=== PATIENT | female | born 1990 | race Caucasian/White ===

== ENCOUNTER 2017-09-10 16:41 | Emergency (ER) | payer BC ==
[2017-09-10] MEDS ORDERED: Sodium Chloride 0.9% 10 ML Syringe FLUSH PRN (17:28)
[2017-09-10] MEDS ORDERED: Ondansetron 4 MG/2 ML SDV IVPUSH ONE (17:28)
[2017-09-10] MEDS ORDERED: Sodium Chloride 0.9% 1,000 ML IV SCH (17:30)
[2017-09-10] MEDS ORDERED: Ketorolac 30 MG/ML SDV IVPUSH ONE (17:30)
[2017-09-10] MEDS ORDERED: HYDROmorphone 1 MG/ML Syringe IVPUSH ONE (17:30)
--- NOTE | 2017-09-10 19:53 | EDM.PDOC ---
ED HPI GENERAL MEDICAL PROBLEM - General Chief Complaint: Genitourinary Problem Stated Complaint: POSS. KIDNEY STONE Time Seen by Provider: 09/10/17 17:10 Source of Information: Reports: Patient, Family History Limitations: Reports: No Limitations - History of Present Illness INITIAL COMMENTS - FREE TEXT/NARRATIVE: The patient presents with left flank pain and left lower abdominal pain. She says this all stared about 1 1/2 weeks ago. She had some hematuria at that time. The pain went away and today it came back more severe. She has some nausea but no vomiting. She has no dysuria. She has no fever, chills, chest pain, shortness of breath or diarrhea. She has a history of kidney stones. Onset: Sudden Duration: Week(s): (1 1/2 weeks ago) Location: Reports: Abdomen, Back (left flank) Quality: Reports: Sharp Severity: Severe Improves with: Reports: None Worsens with: Reports: None Associated Symptoms: Reports: Nausea/Vomiting. Denies: Chest Pain, Cough, Fever /Chills, Headaches, Shortness of Breath Treatments CERTIFIED PHARMACY TECH: Reports: Acetaminophen Other Treatments CERTIFIED PHARMACY TECH: 1630 Left Flank Pain Score (Numeric/FACES): 6 - Related Data Allergies Allergy/AdvReac Type Severity Reaction Status Date / Time No Known Allergies Allergy Verified 09/10/17 17:08 Home Meds: Home Meds Control. 09/10/17 [History] Tamsulosin HCl [Flomax] 0.4 mg PO DAILY #10 cap.er.24h 09/10/17 [Rx] oxyCODONE HCl/Acetaminophen [Percocet 5-325 mg Tablet] 1 - 2 each PO Q6HR PRN # 20 tablet 09/10/17 [Rx] Past Medical History Genitourinary History: Reports: Renal Calculus Social & Family History - Tobacco Use Smoking Status *Q: Never Smoker - Recreational Drug Use Recreational Drug Use: No ED ROS GENERAL - Review of Systems Review Of Systems: See Below Constitutional: Reports: No Symptoms HEENT: Reports: No Symptoms Respiratory: Reports: No Symptoms Cardiovascular: Reports: No Symptoms Endocrine: Reports: No Symptoms GI/Abdominal: Reports: Abdominal Pain, Nausea. Denies: Vomiting : Reports: Flank Pain (Left) Musculoskeletal: Reports: No Symptoms Skin: Reports: No Symptoms Neurological: Reports: No Symptoms ED EXAM, RENAL/ - Physical Exam Exam: See Below Exam Limited By: No Limitations General Appearance: Alert, No Apparent Distress Ears: Normal External Exam Nose: Normal Inspection Head: Atraumatic, Normocephalic Neck: Normal Inspection Respiratory/Chest: No Respiratory Distress, Lungs Clear, Normal Breath Sounds Cardiovascular: Regular Rate, Rhythm, No Edema, No Murmur GI/Abdominal: Soft, No Organomegaly, No Mass, Tender (Mild tenderness to the left lower abdomen) Back Exam: CVA Tenderness (L) Extremities: Normal Inspection Neurological: Alert, Oriented, No Motor/Sensory Deficits Course - Vital Signs Last Recorded V/S: Last Vital Signs Temp 97.3 F 09/10/17 17:08 Pulse 83 09/10/17 17:08 Resp BP 136/105 H 09/10/17 17:08 Pulse Ox 98 09/10/17 17:08 - Orders/Labs/Meds Orders: Active Orders 24 hr Category Date Time Status Peripheral IV Care [RC] . DIRECTED Care 09/10/17 17:29 Active Sodium Chloride 0.9% [Normal Saline] 1,000 ml Med 09/10/17 17:30 Active IV ASDIRECTED Sodium Chloride 0.9% [Saline Flush] Med 09/10/17 17:28 Active 10 ml FLUSH ASDIRECTED PRN ED Antiemetic Medication Reflex [OM.PC] Stat Oth 09/10/17 17:28 Ordered Peripheral IV Insertion Adult [OM.PC] Stat Oth 09/10/17 17:28 Ordered Medication Orders Sodium Chloride (Normal Saline) 1,000 mls @ 125 mls/hr IV ASDIRECTED MARY Last Admin: 09/10/17 18:05 Dose: 125 mls/hr Sodium Chloride (Saline Flush) 10 ml FLUSH ASDIRECTED PRN PRN Reason: Keep Vein Open Last Admin: 09/10/17 17:50 Dose: 10 ml Labs: Laboratory Tests 09/10/17 09/10/17 09/10/17 Range/Units 17:50 17:50 17:50 WBC 6.98 (3.98-10.04) K/mm3 RBC 4.77 (3.98-5.22) M/mm3 Hgb 13.8 (11.2-15.7) gm/L Hct 40.3 (34.1-44.9) % MCV 84.5 (79.4-94.8) fl MCH 28.9 (25.6-32.2) pg MCHC 34.2 (32.2-35.5) g/dl RDW Std Deviation 39.3 (36.4-46.3) fL Plt Count 227 (182-369) K/mm3 MPV 10.8 (9.4-12.3) fl Neut % (Auto) 57.6 (34.0-71.1) % Lymph % (Auto) 30.4 (19.3-51.7) % [place] % (Auto) 7.4 (4.7-12.5) % Eos % (Auto) 3.9 (0.7-5.8) Baso % (Auto) 0.3 (0.1-1.2) % Neut # (Auto) 4.02 (1.56-6.13) K/mm3 Lymph # (Auto) 2.12 (1.18-3.74) K/mm3 [place] # (Auto) 0.52 H (0.24-0.36) K/mm3 Eos # (Auto) 0.27 (0.04-0.36) K/mm3 Baso # (Auto) 0.02 (0.01-0.08) K/mm3 Sodium 144 (136-145) mEq/L Potassium 3.7 (3.5-5.1) mEq/L Chloride 108 H (98-107) mEq/L Carbon Dioxide 25 (21-32) mEq/L Anion Gap 14.7 (5-15) BUN 17 (7-18) mg/dL Creatinine 0.9 (0.55-1.02) mg/dL Est Cr Clr Drug Dosing 76.30 mL/min Estimated GFR (MDRD) > 60 (>60) mL/min BUN/Creatinine Ratio 18.9 H (14-18) Glucose 126 H (74-106) mg/dL Calcium 9.2 (8.5-10.1) mg/dL Total Bilirubin 0.2 (0.2-1.0) mg/dL AST 22 (15-37) U/L ALT 48 (14-59) U/L Alkaline Phosphatase 77 (46-116) U/L Total Protein 7.8 (6.4-8.2) g/dl Albumin 4.0 (3.4-5.0) g/dl Globulin 3.8 gm/dL Albumin/Globulin Ratio 1.1 (1-2) Lipase 235 (73-393) U/L HCG, Qual Negative (NEGATIVE) Urine Color (Yellow) Urine Appearance (Clear) Urine pH (5.0-8.0) Ur Specific [place] (1.005-1.030) Urine Protein (Negative) Urine Glucose (UA) (Negative) Urine Ketones (Negative) Urine Occult Blood (Negative) Urine Nitrite (Negative) Urine Bilirubin (Negative) Urine Urobilinogen (0.2-1.0) Ur Leukocyte Esterase (Negative) Urine RBC (0-5) /hpf Urine WBC (0-5) /hpf Ur Epithelial Cells (0-5) /hpf Urine Bacteria (FEW) /hpf Urine Mucus (FEW) /hpf 09/10/17 Range/Units 18:00 WBC (3.98-10.04) K/mm3 RBC (3.98-5.22) M/mm3 Hgb (11.2-15.7) gm/L Hct (34.1-44.9) % MCV (79.4-94.8) fl MCH (25.6-32.2) pg MCHC (32.2-35.5) g/dl RDW Std Deviation (36.4-46.3) fL Plt Count (182-369) K/mm3 MPV (9.4-12.3) fl Neut % (Auto) (34.0-71.1) % Lymph % (Auto) (19.3-51.7) % [place] % (Auto) (4.7-12.5) % Eos % (Auto) (0.7-5.8) Baso % (Auto) (0.1-1.2) % Neut # (Auto) (1.56-6.13) K/mm3 Lymph # (Auto) (1.18-3.74) K/mm3 [place] # (Auto) (0.24-0.36) K/mm3 Eos # (Auto) (0.04-0.36) K/mm3 Baso # (Auto) (0.01-0.08) K/mm3 Sodium (136-145) mEq/L Potassium (3.5-5.1) mEq/L Chloride (98-107) mEq/L Carbon Dioxide (21-32) mEq/L Anion Gap (5-15) BUN (7-18) mg/dL Creatinine (0.55-1.02) mg/dL Est Cr Clr Drug Dosing mL/min Estimated GFR (MDRD) (>60) mL/min BUN/Creatinine Ratio (14-18) Glucose (74-106) mg/dL Calcium (8.5-10.1) mg/dL Total Bilirubin (0.2-1.0) mg/dL AST (15-37) U/L ALT (14-59) U/L Alkaline Phosphatase (46-116) U/L Total Protein (6.4-8.2) g/dl Albumin (3.4-5.0) g/dl Globulin gm/dL Albumin/Globulin Ratio (1-2) Lipase (73-393) U/L HCG, Qual (NEGATIVE) Urine Color Yellow (Yellow) Urine Appearance Clear (Clear) Urine pH 6.0 (5.0-8.0) Ur Specific [place] > or = 1.030 (1.005-1.030) Urine Protein 1+ H (Negative) Urine Glucose (UA) Negative (Negative) Urine Ketones Negative (Negative) Urine Occult Blood 2+ H (Negative) Urine Nitrite Negative (Negative) Urine Bilirubin Negative (Negative) Urine Urobilinogen 0.2 (0.2-1.0) Ur Leukocyte Esterase Negative (Negative) Urine RBC 0-5 (0-5) /hpf Urine WBC 0-5 (0-5) /hpf Ur Epithelial Cells 0-5 (0-5) /hpf Urine Bacteria Few (FEW) /hpf Urine Mucus Moderate H (FEW) /hpf Meds: Medications Generic Name Dose Route Start Last Admin Trade Name Freq PRN Reason Stop Dose Admin Sodium Chloride 1,000 mls @ 125 mls/hr 09/10/17 17:30 09/10/17 18:05 Normal Saline IV 125 mls/hr ASDIRECTED MARY Administration Sodium Chloride 10 ml 09/10/17 17:28 09/10/17 17:50 Saline Flush FLUSH 10 ml ASDIRECTED PRN Administration Keep Vein Open Discontinued Medications Generic Name Dose Route Start Last Admin Trade Name Freq PRN Reason Stop Dose Admin Hydromorphone HCl 1 mg 09/10/17 17:30 09/10/17 18:05 Dilaudid IVPUSH 09/10/17 17:31 1 mg ONETIME ONE Administration Ketorolac Tromethamine 30 mg 09/10/17 17:30 09/10/17 18:12 Toradol IVPUSH 09/10/17 17:31 30 mg ONETIME ONE Administration Ondansetron HCl 4 mg 09/10/17 17:28 09/10/17 18:10 Zofran IVPUSH 09/10/17 17:29 4 mg ONETIME ONE Administration - Re-Assessments/Exams Free Text/Narrative Re-Assessment/Exam: 09/10/17 19:52 I ordered an IV NS at 125mL/hr, zofran 4mg IV, dilaudid 1mg IV, toradol 30mg IV , labs, UA and a CT of her abdomen and pelvis without any contrast to look for a kidney stone. Her UA shows blood. Her CBC and CMP looks good. I am waiting for the CT report. 09/10/17 20:[address] shows small nonobstructing calculi within both kidneys. Left kidney shows hydronephrosis which is caused by a proximal obstructing stone located slightly past the UPJ measuring 9mm in size. I am not sure if she will pass this on her own. She saw Dr Richards in the past. I will have her call there tomorrow. I sent the [facility] to [facility]. Departure - Departure Time of Disposition: 20:40 Disposition: Home, Self-Care 01 Condition: Good Clinical Impression: Kidney stone, Ureteral calculus, left - Discharge Information Prescriptions: oxyCODONE HCl/Acetaminophen [Percocet 5-325 mg Tablet] 1 - 2 each PO Q6HR PRN # 20 tablet PRN Reason: Pain Tamsulosin HCl [Flomax] 0.4 mg PO DAILY #10 cap.er.24h Referrals: PCP,Not In Area [Primary Care Provider] - Yolanda Doe MD [Consulting Physician] - Forms: ED Department Discharge Additional Instructions: Take the flomax daily. Take the percocet as needed for pain and an antiinflammatory such as motrin or aleve. Call Dr Solis tomorrow to get an appointment. Please return if you are worse. - My Orders Last 24 Hours: My Active Orders 09/10/17 17:28 Sodium Chloride 0.9% [Saline Flush] 10 ml FLUSH ASDIRECTED PRN ED Antiemetic Medication Reflex [OM.PC] Stat Peripheral IV Insertion Adult [OM.PC] Stat 09/10/17 17:29 Peripheral IV Care [RC] . DIRECTED 09/10/17 17:30 Sodium Chloride 0.9% [Normal Saline] 1,000 ml IV ASDIRECTED - Assessment/Plan Last 24 Hours: My Active Orders 09/10/17 17:28 Sodium Chloride 0.9% [Saline Flush] 10 ml FLUSH ASDIRECTED PRN ED Antiemetic Medication Reflex [OM.PC] Stat Peripheral IV Insertion Adult [OM.PC] Stat 09/10/17 17:29 Peripheral IV Care [RC] . DIRECTED 09/10/17 17:30 Sodium Chloride 0.9% [Normal Saline] 1,000 ml IV ASDIRECTED
--- NOTE | 2017-09-10 20:16 | CT ---
CT abdomen and pelvis Technique: Multiple axial sections were obtained from above the kidneys inferiorly through the pubic symphysis. Intravenous and oral contrast not utilized. Study has been performed as a ureteral stone protocol. Findings: Left kidney shows hydronephrosis. This finding is due to an obstructing stone slightly past the UPJ within the very proximal ureter measuring about 9 mm in size. No additional calcifications are seen along the course of the right or left ureters. Small nonobstructing stone is noted within the inferior right kidney measuring about 4 mm. 3 small nonobstructing calculi are seen within the left kidney with largest measuring 4 mm. Small portion of the visualized lungs appear clear. Noncontrast appearance of the visualized liver and spleen appears within normal limits. Adrenal glands show no nodule. Pancreas shows no discrete abnormality. Gallbladder contains no calcified gallstones. Aorta shows no aneurysmal dilatation. No retroperitoneal adenopathy or mesenteric abnormalities are seen. No pelvic mass or adenopathy is identified. Appendix is seen and appears within normal limits. No inflammatory change or free fluid is seen. Impression: 1. Small nonobstructing calculi within both kidneys. 2. Left kidney shows hydronephrosis which is caused by a proximal obstructing stone located slightly past the UPJ measuring 9 mm in size. 3. Other normal findings as described above. Diagnostic code #3
== END 2017-09-10 20:49 | disposition home or self-care (01) ==
LOC: JD.ED 16:41
DX: N13.2 Hydronephrosis with renal and ureteral calculous obstruction (principal)
CPT/HCPCS: 36415; 74176; 80053; 81001; 83690; 84703; 85025; 96361; 96374; 96375; 99284; J1170; J1885; J2405; J7040; J7050

== ENCOUNTER 2019-03-04 05:32 | Inpatient (IN) | payer BC ==
[2019-03-04] MEDS ORDERED: Sodium Chloride 0.9% 10 ML Syringe FLUSH PRN (06:30)
[2019-03-04] MEDS ORDERED: Metoclopramide 10 MG/2 ML SDV IVPUSH ONE (06:30)
[2019-03-04] MEDS ORDERED: Lactated Ringers 1,000 ML IV SCH (06:30)
[2019-03-04] MEDS ORDERED: Citric Acid/Sodium Citrate Solution 30 ML Cup PO ONE (06:30)
[2019-03-04] MEDS ORDERED: ceFAZolin 2 GM in Premix Bag 1 BAG IV ONE (07:00)
[2019-03-04] MEDS ORDERED: Oxytocin/Lactated Ringers 10 UNIT/1,000 ML BAG IV SCH (07:00)
[2019-03-04] MEDS ORDERED: Morphine PF 1 MG/ML Amp ONE (07:01)
[2019-03-04] MEDS ORDERED: Ketorolac 30 MG/ML SDV ONE (07:02)
[2019-03-04] MEDS ORDERED: Ondansetron 4 MG/2 ML SDV ONE (07:02)
[2019-03-04] MEDS ORDERED: Oxytocin 10 Units/1 ML SDV ONE (07:02)
[2019-03-04] MEDS ORDERED: ceFAZolin 1 GM Vial ONE (07:02)
--- NOTE | 2019-03-04 07:24 | PCM.OPNOTE ---
- General Post-Op/Procedure Note Date of Surgery/Procedure: 03/04/19 Operative Procedure(s): Repeat low transverse Findings: Moderate amount of scar tissue between the rectus and fascia. Minimal scarring between the bladder and JÚNIOR. Extremely thin JÚNIOR. Baby girl in a vertex presentation with APGARS of 9 & 9. Weight of 5 lbs 12 oz. Normal appearance of the ovaries and fallopian tubes bilaterally Pre Op Diagnosis: 37 2/7 wks gestation. Hx of x3. IUGR. Gestational HTN Post-Op Diagnosis: Same Anesthesia Technique: Spinal Primary Surgeon: Sharon Landrum Secondary Surgeon: Gemma Solano Anesthesia Provider: Sena Christianson Reason Lift Builder Whole Was Necessary: BMI of patient, speed/safety of procedure Pathology: Cord blood collected. Placenta sent to pathology Fluid Replacement, Intraop: 1,200 Output, Urine Amount: 125 EBL in mLs: 700 Complications: None Condition: Good Free Text/Narrative:: The risks, benefits, indications, potential complications, and alternatives were explained to the patient and informed consent obtained. After induction of anesthesia, the patient was placed in a supine position and then draped and prepped in the usual sterile manner. A Pfannenstiel incision was made and carried down through the subcutaneous tissue to the fascia. Fascial incision was made and extended transversely. The fascia was from the underlying rectus tissue superiorly and inferiorly. The peritoneum was identified and entered. Peritoneal incision was extended longitudinally. The utero-vesical peritoneal reflection was incised transversely and the bladder flap was bluntly freed from the lower uterine segment. A very think JÚNIOR was encountered. A low transverse uterine incision was made sharply with a scalpel and extended bluntly in a cephalocaudad direction. A baby girl was delivered from a vertex presentation with APGARS as above. After the umbilical cord was clamped and cut cord blood was obtained for evaluation. The placenta was removed intact and appeared normal. The uterus was exteriorized and cleared of clots. The uterine outline, tubes and ovaries appeared normal. The uterine incision was closed with running locked sutures of 0 Vicryl. Hemostasis was obtained with a few interrupted sutures of 0 vicryl placed in a figure of eight fashion. The uterus was then placed back into the abdomen. The infracolic gutters were cleared of blood clots. The fascia was then reapproximated with running sutures of 1 PDS. The subcutaneous tissue was irrigated with sterile warm normal saline, hemostasis obtained with cautery. This layer was closed with a running 0 vicryl. The skin was reapproximated with running Subcuticular 4-0 monocryl sutures. Instrument, sponge, and needle counts were correct prior the abdominal closure and at the conclusion of the case.
--- NOTE | 2019-03-04 07:28 | PCM.PREANE ---
Preanesthetic Assessment - Procedure Proposed Procedure: planned repeat section - Anesthesia/Transfusion/Family Hx Anesthesia History: Prior Anesthesia Without Reaction Family History of Anesthesia Reaction: No Transfusion History: No Prior Transfusion(s) Intubation History: Unknown - Review of Systems General: No Symptoms Pulmonary: No Symptoms Cardiovascular: No Symptoms Gastrointestinal: Other (GERD ) Neurological: Headache (recently with high blood pressure ) Other: Reports: None - Physical Assessment NPO Status Date: 03/04/19 NPO Status Time: 00:00 O2 Sat by Pulse Oximetry: 98 Respiratory Rate: 16 Vital Signs: Last Vital Signs Temp 36.6 C 03/04/19 06:00 Pulse 77 03/04/19 06:00 Resp 16 03/04/19 06:00 BP 130/94 H 03/04/19 06:00 Pulse Ox 98 03/04/19 06:00 Height: 1.63 m Weight: 94.166 kg ASA Class: 3 Mental Status: Alert & Oriented x3 Airway Class: Mallampati = 3 Dentition: Reports: Normal Dentition Thyro-Mental Finger Breadths: 2 Mouth Opening Finger Breadths: 4 ROM/Head Extension: Full Lungs: Clear to Auscultation, Normal Respiratory Effort Cardiovascular: Regular Rate, Regular Rhythm - Lab Values: Laboratory Last Values WBC 6.95 K/mm3 (3.98-10.04) 03/04/19 05:50 RBC 4.11 M/mm3 (3.98-5.22) 03/04/19 05:50 Hgb 12.1 gm/L (11.2-15.7) D 03/04/19 05:50 Hct 36.0 % (34.1-44.9) 03/04/19 05:50 MCV 87.6 fl (79.4-94.8) D 03/04/19 05:50 MCH 29.4 pg (25.6-32.2) 03/04/19 05:50 MCHC 33.6 g/dl (32.2-35.5) 03/04/19 05:50 RDW Std Deviation 43.0 fL (36.4-46.3) 03/04/19 05:50 Plt Count 50 K/mm3 (182-369) L D 03/04/19 05:50 MPV 11.6 fl (9.4-12.3) 03/04/19 05:50 Neut % (Auto) 53.9 % (34.0-71.1) 03/04/19 05:50 Lymph % (Auto) 32.7 % (19.3-51.7) 03/04/19 05:50 [place] % (Auto) 8.8 % (4.7-12.5) 03/04/19 05:50 Eos % (Auto) 3.2 (0.7-5.8) 03/04/19 05:50 Baso % (Auto) 0.1 % (0.1-1.2) 03/04/19 05:50 Neut # (Auto) 3.75 K/mm3 (1.56-6.13) 03/04/19 05:50 Lymph # (Auto) 2.27 K/mm3 (1.18-3.74) 03/04/19 05:50 [place] # (Auto) 0.61 K/mm3 (0.24-0.36) H 03/04/19 05:50 Eos # (Auto) 0.22 K/mm3 (0.04-0.36) 03/04/19 05:50 Baso # (Auto) 0.01 K/mm3 (0.01-0.08) 03/04/19 05:50 AST 22 U/L (15-37) 03/04/19 05:50 ALT 23 U/L (14-59) 03/04/19 05:50 PLT level redrawn before patient taken to OR and was 157. Consider first value a lab error. - Allergies Allergies/Adverse Reactions: Allergies Allergy/AdvReac Type Severity Reaction Status Date / Time No Known Allergies Allergy Verified 03/04/19 07:02 - Blood Blood Available: No - Anesthesia Plan Pre-Op Medication Ordered: Antacids - Acknowledgements Anesthesia Type Planned: Spinal Pt an Appropriate Candidate for the Planned Anesthesia: Yes Alternatives and Risks of Anesthesia Discussed w Pt/Guardian: Yes Pt/Guardian Understands and Agrees with Anesthesia Plan: Yes PreAnesthesia Questionnaire HEENT History: Reports: Impaired Vision Other HEENT History: wears glasses Cardiovascular History: Reports: Other (See Below) Other Cardiovascular History: Gestational HTN Gastrointestinal History: Reports: GERD Genitourinary History: Reports: Renal Calculus GRIDDLE ATTENDANT History: Reports: , Spontaneous - Past Surgical History Female Surgical History: Reports: Section, Lithotripsy/ESWL Other Female Surgeries/Procedures: C/S x3, lithotripsy x2 - SUBSTANCE USE Smoking Status *Q: Never Smoker Tobacco Use Within Last Twelve Months: No Recreational Drug Use History: No - HOME MEDS Home Medications: Home Meds Loratadine [Claritin] 10 mg PO DAILY PRN 03/04/19 [History] PNV95/Ferrous Fumarate/FA [ Tablet] 1 tab PO DAILY 03/04/19 [History] - CURRENT (IN HOUSE) MEDS Current Meds: Current Medications Cefazolin Sodium/Dextrose 2 gm (/ Premix) 50 mls @ 100 mls/hr IV ONETIME ONE Stop: 03/04/19 07:29 Lactated Ringer's (Ringers, Lactated) 1,000 mls @ 125 mls/hr IV ASDIRECTED MARY Last Admin: 03/04/19 06:34 Dose: 125 mls/hr Oxytocin/Lactated Ringer's (Pitocin In Lr 10 Units/1,000 Ml) 10 unit in 1,000 mls @ 100 mls/hr IV ASDIRECTED MARY; Protocol Sodium Chloride (Saline Flush) 10 ml FLUSH ASDIRECTED PRN PRN Reason: Keep Vein Open Discontinued Medications Cefazolin Sodium (Ancef) Confirm Administered Dose 2 gm .ROUTE .STK-MED ONE Stop: 03/04/19 07:03 Citric Acid/Sodium Citrate (Bicitra Solution) 30 ml PO ONETIME ONE Stop: 03/04/19 06:31 Last Admin: 03/04/19 06:34 Dose: 30 ml Ketorolac Tromethamine (Toradol) Confirm Administered Dose 30 mg .ROUTE .STK- MED ONE Stop: 03/04/19 07:03 Metoclopramide HCl (Reglan) 10 mg IVPUSH ONETIME ONE Stop: 03/04/19 06:31 Last Admin: 03/04/19 06:35 Dose: 10 mg Morphine Sulfate (Duramorph Pf) Confirm Administered Dose 1 mg .ROUTE .STK-MED ONE Stop: 03/04/19 07:02 Ondansetron HCl (Zofran) Confirm Administered Dose 4 mg .ROUTE .STK-MED ONE Stop: 03/04/19 07:03 Oxytocin (Pitocin) Confirm Administered Dose 10 unit .ROUTE .STK-MED ONE Stop: 03/04/19 07:03
[2019-03-04] MEDS ORDERED: Misoprostol 200 MCG Tab ONE (08:43)
--- NOTE | 2019-03-04 09:26 | PCM.POSTAN ---
POST ANESTHESIA ASSESSMENT - MENTAL STATUS Mental Status: Alert - VITAL SIGNS Pulse Rate: 74 SaO2: 98 Resp Rate: 16 Blood Pressure: 117/72 - RESPIRATORY Respiratory Status: Respiratory Rate WNL, Airway Patent, O2 Saturation Stable - CARDIOVASCULAR CV Status: Pulse Rate WNL, Blood Pressure Stable - GASTROINTESTINAL GI Status: No Symptoms
[2019-03-04] MEDS ORDERED: Ondansetron 4 MG/2 ML SDV IV PRN (10:47)
[2019-03-04] MEDS ORDERED: diphenhydrAMINE 50 MG/ML SDV IVPUSH PRN (10:47)
[2019-03-04] MEDS ORDERED: Dextrose 5%-Lactated Ringers 1,000 ML IV SCH (10:47)
[2019-03-04] MEDS ORDERED: Naloxone 0.4 MG/ML SDV IVPUSH PRN (10:47)
[2019-03-04] MEDS ORDERED: Lanolin 100% Cream 7 GM Tube TOP PRN (10:47)
[2019-03-04] MEDS: Ketorolac 30 MG/ML SDV IVPUSH SCH ×2 (14:41→22:26)
[2019-03-05] MEDS: Ketorolac 30 MG/ML SDV IVPUSH SCH (03:51)
--- NOTE | 2019-03-05 06:44 | PCM.PNPP ---
- General Info Date of Service: 03/05/19 Functional Status: Reports: Pain Controlled, Tolerating Diet, Ambulating, Urinating - Review of Systems General: Reports: No Symptoms Pulmonary: Reports: No Symptoms Cardiovascular: Reports: No Symptoms Gastrointestinal: Reports: Abdominal Pain (managed with medications ) Genitourinary: Reports: No Symptoms Musculoskeletal: Reports: No Symptoms - Patient Data Vital Signs - Most Recent: Last Vital Signs Temp 36.6 C 03/05/19 03:36 Pulse 90 03/05/19 03:36 Resp 14 03/05/19 03:36 BP 106/73 03/05/19 03:36 Pulse Ox 95 03/05/19 03:36 Weight - Most Recent: 94.166 kg I&O - Last 24 Hours: Intake & Output 03/04/19 03/04/19 03/05/19 14:59 22:59 06:59 Intake Total 6450 1240 800 Output Total 091 524 3033 Balance 5825 290 -200 Lab Results - Last 24 Hours: Laboratory Results - last 24 hr 03/04/19 03/04/19 03/04/19 Range/Units 05:50 05:50 05:50 WBC (3.98-10.04) K/mm3 RBC (3.98-5.22) M/mm3 Hgb (11.2-15.7) gm/L Hct (34.1-44.9) % MCV (79.4-94.8) fl MCH (25.6-32.2) pg MCHC (32.2-35.5) g/dl RDW Std Deviation (36.4-46.3) fL Plt Count (182-369) K/mm3 MPV (9.4-12.3) fl Manual Slide Review Abnormal smear Creatinine (0.55-1.02) mg/dL Est Cr Clr Drug Dosing mL/min Estimated GFR (MDRD) (>60) mL/min RPR Non-reactive (NONREACTIVE) Blood Type B POSITIVE Gel Antibody Screen Negative 03/04/19 03/04/19 03/05/19 Range/Units 05:56 07:44 06:05 WBC 8.65 (3.98-10.04) K/mm3 RBC 3.50 L (3.98-5.22) M/mm3 Hgb 10.1 L D (11.2-15.7) gm/L Hct 31.1 L (34.1-44.9) % MCV 88.9 (79.4-94.8) fl MCH 28.9 (25.6-32.2) pg MCHC 32.5 (32.2-35.5) g/dl RDW Std Deviation 43.2 (36.4-46.3) fL Plt Count 157 L D 148 L (182-369) K/mm3 MPV 11.2 (9.4-12.3) fl Manual Slide Review Creatinine 0.6 (0.55-1.02) mg/dL Est Cr Clr Drug Dosing 117.31 mL/min Estimated GFR (MDRD) > 60 (>60) mL/min RPR (NONREACTIVE) Blood Type Gel Antibody Screen Med Orders - Current: Current Medications Diphenhydramine HCl (Benadryl) 25 mg IVPUSH Q6H PRN PRN Reason: Itching or Nausea Docusate Sodium (Colace) 100 mg PO Q12H PRN PRN Reason: Constipation Emollient Ointment (Lansinoh Hpa) 0 gm TOP ASDIRECTED PRN PRN Reason: Sore Nipples Ibuprofen (Motrin) 600 mg PO Q6H PRN PRN Reason: mild pain or fever Naloxone HCl (Narcan) 0.1 mg IVPUSH SEECOMMENT PRN PRN Reason: Respiratory Depression Ondansetron HCl (Zofran) 4 mg IV Q8H PRN PRN Reason: Nausea/Vomiting Oxycodone/Acetaminophen (Percocet 325-5 Mg) 2 tab PO Q4H PRN PRN Reason: Pain (moderate 4-6) Discontinued Medications Cefazolin Sodium (Ancef) Confirm Administered Dose 2 gm .ROUTE .STK-MED ONE Stop: 03/04/19 07:03 Citric Acid/Sodium Citrate (Bicitra Solution) 30 ml PO ONETIME ONE Stop: 03/04/19 06:31 Last Admin: 03/04/19 06:34 Dose: 30 ml Cefazolin Sodium/Dextrose 2 gm (/ Premix) 50 mls @ 100 mls/hr IV ONETIME ONE Stop: 03/04/19 07:29 Last Admin: 03/04/19 11:24 Dose: Not Given Lactated Ringer's (Ringers, Lactated) 1,000 mls @ 125 mls/hr IV ASDIRECTED MARY Last Admin: 03/04/19 06:34 Dose: 125 mls/hr Oxytocin/Lactated Ringer's (Pitocin In Lr 10 Units/1,000 Ml) 10 unit in 1,000 mls @ 100 mls/hr IV ASDIRECTED MARY; Protocol Dextrose/Lactated Ringer's (Dextrose 5%-Lactated Ringers) 1,000 mls @ 125 mls/ hr IV ASDIRECTED MARY Stop: 03/04/19 18:46 Last Admin: 03/04/19 14:42 Dose: 125 mls/hr Ketorolac Tromethamine (Toradol) Confirm Administered Dose 30 mg .ROUTE .STK- MED ONE Stop: 03/04/19 07:03 Ketorolac Tromethamine (Toradol) 30 mg IVPUSH Q6H [facility] Stop: 03/05/19 03:01 Last Admin: 03/05/19 03:51 Dose: 30 mg Metoclopramide HCl (Reglan) 10 mg IVPUSH ONETIME ONE Stop: 03/04/19 06:31 Last Admin: 03/04/19 06:35 Dose: 10 mg Misoprostol (Cytotec) Confirm Administered Dose 600 mcg .ROUTE .STK-MED ONE Stop: 03/04/19 08:44 Morphine Sulfate (Duramorph Pf) Confirm Administered Dose 1 mg .ROUTE .STK-MED ONE Stop: 03/04/19 07:02 Ondansetron HCl (Zofran) Confirm Administered Dose 4 mg .ROUTE .STK-MED ONE Stop: 03/04/19 07:03 Oxytocin (Pitocin) Confirm Administered Dose 10 unit .ROUTE .STK-MED ONE Stop: 03/04/19 07:03 Sodium Chloride (Saline Flush) 10 ml FLUSH ASDIRECTED PRN PRN Reason: Keep Vein Open - Infant Interaction Disposition, : [place] in Room with Family Interaction: Holding Infant Infant Feeding: Attempted ; Nursed Fair/Poor Support Person: - Recovery Exam Fundal Tone: Firm Fundal Level: 1 Fingerbreadths Below Umbilicus Fundal Placement: Midline Lochia Amount: Small Lochia Color: Rubra/Red Perineum Description: Intact, Minimal Bruising/Swelling Episiotomy/Laceration: None Bladder Status: Voiding Urinary Elimination: Voided - Exam General: Alert, Oriented, Cooperative Lungs: Clear to Auscultation, Normal Respiratory Effort Cardiovascular: Regular Rate, Regular Rhythm GI/Abdominal Exam: Soft, Tender (appropriate post op) Extremities: Normal Inspection Skin: Warm, Dry, Intact Wound/Incisions: Healing Well, No Drainage - Problem List & Annotations (1) 37 weeks gestation of SNOMED Code(s): 94579272 Code(s): Z3A.37 - 37 WEEKS GESTATION OF Status: Acute Current Visit: Yes (2) Gestational hypertension SNOMED Code(s): 689264590 Code(s): O13.9 - GESTATIONAL HTN W/O SIGNIFICANT PROTEINURIA, UNSP TRIMESTER Status: Acute Current Visit: Yes Qualifiers: Trimester: third trimester Qualified Code(s): O13.3 - Gestational [ -induced] hypertension without significant proteinuria, third trimester (3) IUGR (intrauterine growth restriction) SNOMED Code(s): 91947917 Code(s): SWS5869 - Status: Acute Current Visit: Yes (4) S/P repeat low transverse SNOMED Code(s): 489190884, 45186580, 439169789, 504331330, 397859530 Code(s): Z98.891 - HISTORY OF UTERINE SCAR FROM PREVIOUS SURGERY Status: Acute Current Visit: Yes - Problem List Review Problem List Initiated/Reviewed/Updated: Yes - My Orders Last 24 Hours: My Active Orders 03/04/19 10:47 Antiembolic Devices [RC] PER UNIT ROUTINE Communication Order [RC] PER UNIT ROUTINE Intake and Output [RC] PRN May Shower [RC] PER UNIT ROUTINE Notify Provider Intake and Out [RC] ASDIRECTED Vital Signs [RC] 03,09,15,21 Acetaminophen/oxyCODONE [Percocet 325-5 MG] 2 tab PO Q4H PRN Docusate Sodium [Colace] 100 mg PO Q12H PRN Lanolin [Lansinoh HPA] See Dose Instructions TOP ASDIRECTED PRN Naloxone [Narcan] 0.1 mg IVPUSH SEECOMMENT PRN Ondansetron [Zofran] 4 mg IV Q8H PRN diphenhydrAMINE [Benadryl] 25 mg IVPUSH Q6H PRN Assess Lochia [WOMSER] Per Unit Routine Assess Uterine Involution [WOMSER] Per Unit Routine Breast Pump [WOMSER] Per Unit Routine Ice Therapy [OM.PC] Per Unit Routine Peripheral IV Discontinue [OM.PC] Routine Sequential Compression Device [OM.PC] Per Unit Routine 03/04/19 Breakfast Regular Diet [DIET] 03/05/19 09:00 Ibuprofen [Motrin] 600 mg PO Q6H PRN - Assessment Assessment:: 29 y/o POD#1 from [facility] at 37 2/7 wks for gestational HTN an IUGR - Plan Plan:: S/p RLTCS * Routine cares * encourage breast feeding * BP's normal range following delivery. Continue to monitor closely. Return in 1 week for BP check * Discharge home in 1-2 days
[2019-03-05] MEDS: Acetaminophen/oxyCODONE 325-5 MG Tab PO PRN ×2 (09:43→15:40)
[2019-03-05] MEDS: Docusate Sodium 100 MG Cap PO PRN (09:44)
[2019-03-05] MEDS: Ibuprofen 600 MG Tab PO PRN ×2 (13:36→19:54)
[2019-03-06] MEDS: Acetaminophen/oxyCODONE 325-5 MG Tab PO PRN (03:16)
[2019-03-06] MEDS: Ibuprofen 600 MG Tab PO PRN (09:22)
[2019-03-06] MEDS: Docusate Sodium 100 MG Cap PO PRN (09:25)
--- NOTE | 2019-03-06 09:53 | PCM.SN ---
- Free Text/Narrative Note: Post Operative Progress Note POD # 2 Subjective: Doing well overall. Ambulating without difficulty. Lochia minimal. Voiding without difficulty. Passing flatus. Tolerating regular diet without nausea or vomiting. Pain controlled with oral medications. Breast-feeding with minimal difficulty. Objective: Vitals: Vital Signs - 24 hr 03/05/19 03/05/19 03/05/19 16:20 19:57 19:58 Temperature 36.8 C 36.9 C Pulse, 83 88 81 Peripheral Respiratory 16 14 Rate Blood Pressure 135/93 H 146/94 H O2 Sat by Pulse 95 96 95 Oximetry 03/05/19 03/06/19 03/06/19 20:02 03:21 09:27 Temperature 36.8 C 36.8 C Pulse, 70 88 Peripheral Respiratory 14 16 Rate Blood Pressure 119/92 H 126/89 125/80 O2 Sat by Pulse 98 97 Oximetry Physical Exam General: Alert and oriented, no acute distress Lungs: Clear to auscultation bilaterally Heart: Regular rate and rhythm Abdomen: Soft, minimal appropriate tenderness, non-distended, fundus midline, nontender and at the umbilicus Incision: Clean, dry and intact, no erythema, bleeding or drainage with Steri- Strips in place Extremities: No edema ASSESSMENT: 29-year-old female s/p repeat section POD #2 for history of section, complicated by gestational hypertension in intrauterine growth restriction PLAN: Doing well Breast-feeding with minimal difficulty. Assist as needed Incision healing well. Continue to keep clean and dry. Lochia minimal. Continue to monitor for appropriate lochia. Continue routine post-operative care Anticipate discharge home today Flynn Ramirez MD 9:51 AM 03/06/2019
--- NOTE | 2019-03-06 09:57 | PCM.DCSUM1 ---
Discharge Summary - Hospital Course Free Text/Narrative:: - General Post-Op/Procedure Note Date of Surgery/Procedure: 03/04/19 Operative Procedure(s): Repeat low transverse Findings: Moderate amount of scar tissue between the rectus and fascia. Minimal scarring between the bladder and JÚNIOR. Extremely thin JÚNIOR. Baby girl in a vertex presentation with APGARS of 9 & 9. Weight of 5 lbs 12 oz. Normal appearance of the ovaries and fallopian tubes bilaterally Pre Op Diagnosis: 37 2/7 wks gestation. Hx of x3. IUGR. Gestational HTN Post-Op Diagnosis: Same Anesthesia Technique: Spinal Primary Surgeon: Sharon Landrum Secondary Surgeon: Gemma Solano Anesthesia Provider: Sena Christianson Reason Engineering Design Supervisor Was Necessary: BMI of patient, speed/safety of procedure Pathology: Cord blood collected. Placenta sent to pathology Fluid Replacement, Intraop: 1,200 Output, Urine Amount: 125 EBL in mLs: 700 Complications: None Condition: Good Free Text/Narrative:: The risks, benefits, indications, potential complications, and alternatives were explained to the patient and informed consent obtained. After induction of anesthesia, the patient was placed in a supine position and then draped and prepped in the usual sterile manner. A Pfannenstiel incision was made and carried down through the subcutaneous tissue to the fascia. Fascial incision was made and extended transversely. The fascia was from the underlying rectus tissue superiorly and inferiorly. The peritoneum was identified and entered. Peritoneal incision was extended longitudinally. The utero-vesical peritoneal reflection was incised transversely and the bladder flap was bluntly freed from the lower uterine segment. A very think JÚNIOR was encountered. A low transverse uterine incision was made sharply with a scalpel and extended bluntly in a cephalocaudad direction. A baby girl was delivered from a vertex presentation with APGARS as above. After the umbilical cord was clamped and cut cord blood was obtained for evaluation. The placenta was removed intact and appeared normal. The uterus was exteriorized and cleared of clots. The uterine outline, tubes and ovaries appeared normal. The uterine incision was closed with running locked sutures of 0 Vicryl. Hemostasis was obtained with a few interrupted sutures of 0 vicryl placed in a figure of eight fashion. The uterus was then placed back into the abdomen. The infracolic gutters were cleared of blood clots. The fascia was then reapproximated with running sutures of 1 PDS. The subcutaneous tissue was irrigated with sterile warm normal saline, hemostasis obtained with cautery. This layer was closed with a running 0 vicryl. The skin was reapproximated with running Subcuticular 4-0 monocryl sutures. Instrument, sponge, and needle counts were correct prior the abdominal closure and at the conclusion of the case. HPI Initial Comments: - General Post-Op/Procedure Note Date of Surgery/Procedure: 03/04/19 Operative Procedure(s): Repeat low transverse Findings: Moderate amount of scar tissue between the rectus and fascia. Minimal scarring between the bladder and JÚNIOR. Extremely thin JÚNIOR. Baby girl in a vertex presentation with APGARS of 9 & 9. Weight of 5 lbs 12 oz. Normal appearance of the ovaries and fallopian tubes bilaterally Pre Op Diagnosis: 37 2/7 wks gestation. Hx of x3. IUGR. Gestational HTN Post-Op Diagnosis: Same Anesthesia Technique: Spinal Primary Surgeon: Sharon Landrum Secondary Surgeon: Gemma Solano Anesthesia Provider: Sena Christianson Reason Engineering Design Supervisor Was Necessary: BMI of patient, speed/safety of procedure Pathology: Cord blood collected. Placenta sent to pathology Fluid Replacement, Intraop: 1,200 Output, Urine Amount: 125 EBL in mLs: 700 Complications: None Condition: Good Free Text/Narrative:: The risks, benefits, indications, potential complications, and alternatives were explained to the patient and informed consent obtained. After induction of anesthesia, the patient was placed in a supine position and then draped and prepped in the usual sterile manner. A Pfannenstiel incision was made and carried down through the subcutaneous tissue to the fascia. Fascial incision was made and extended transversely. The fascia was from the underlying rectus tissue superiorly and inferiorly. The peritoneum was identified and entered. Peritoneal incision was extended longitudinally. The utero-vesical peritoneal reflection was incised transversely and the bladder flap was bluntly freed from the lower uterine segment. A very think JÚNIOR was encountered. A low transverse uterine incision was made sharply with a scalpel and extended bluntly in a cephalocaudad direction. A baby girl was delivered from a vertex presentation with APGARS as above. After the umbilical cord was clamped and cut cord blood was obtained for evaluation. The placenta was removed intact and appeared normal. The uterus was exteriorized and cleared of clots. The uterine outline, tubes and ovaries appeared normal. The uterine incision was closed with running locked sutures of 0 Vicryl. Hemostasis was obtained with a few interrupted sutures of 0 vicryl placed in a figure of eight fashion. The uterus was then placed back into the abdomen. The infracolic gutters were cleared of blood clots. The fascia was then reapproximated with running sutures of 1 PDS. The subcutaneous tissue was irrigated with sterile warm normal saline, hemostasis obtained with cautery. This layer was closed with a running 0 vicryl. The skin was reapproximated with running Subcuticular 4-0 monocryl sutures. Instrument, sponge, and needle counts were correct prior the abdominal closure and at the conclusion of the case. Brief History: - General Post-Op/Procedure Note. Date of Surgery/Procedure: . Operative Procedure(s): Repeat low transverse . Findings: Moderate amount of scar tissue between the rectus and fascia. Minimal scarring between the bladder and JÚNIOR. Extremely thin JÚNIOR. Baby girl in a vertex presentation with APGARS of 9 & 9. Weight of 5 lbs 12 oz. Normal appearance of the ovaries and fallopian tubes bilaterally. Pre Op Diagnosis: 37 2/7 wks gestation. Hx of x3. IUGR. Gestational HTN. Post-Op Diagnosis: Same. Anesthesia Technique: Spinal. Primary Surgeon: Sharon Landrum. Secondary Surgeon: Gemma Solano. Anesthesia Provider: Sena Christianson. Reason Engineering Design Supervisor Was Necessary: BMI of patient, speed/safety of procedure. Pathology: Cord blood collected. Placenta sent to pathology. Fluid Replacement, Intraop: 1,200. Output, Urine Amount: 125. EBL in mLs: 700. Complications: None. Condition: Good. Free Text/Narrative:: The risks, benefits, indications, potential complications, and alternatives were explained to the patient and informed consent obtained. After induction of anesthesia, the patient was placed in a supine position and then draped and prepped in the usual sterile manner. A Pfannenstiel incision was made and carried down through the subcutaneous tissue to the fascia. Fascial incision was made and extended transversely. The fascia was from the underlying rectus tissue superiorly and inferiorly. The peritoneum was identified and entered. Peritoneal incision was extended longitudinally. The utero-vesical peritoneal reflection was incised transversely and the bladder flap was bluntly freed from the lower uterine segment. A very think JÚNIOR was encountered. A low transverse uterine incision was made sharply with a scalpel and extended bluntly in a cephalocaudad direction. A baby girl was delivered from a vertex presentation with APGARS as above. After the umbilical cord was clamped and cut cord blood was obtained for evaluation. The placenta was removed intact and appeared normal. The uterus was exteriorized and cleared of clots. The uterine outline, tubes and ovaries appeared normal. The uterine incision was closed with running locked sutures of 0 Vicryl. Hemostasis was obtained with a few interrupted sutures of 0 vicryl placed in a figure of eight fashion. The uterus was then placed back into the abdomen. The infracolic gutters were cleared of blood clots. The fascia was then reapproximated with running sutures of 1 PDS. The subcutaneous tissue was irrigated with sterile warm normal saline, hemostasis obtained with cautery. This layer was closed with a running 0 vicryl. The skin was reapproximated with running Subcuticular 4-0 monocryl sutures. Instrument, sponge, and needle counts were correct prior the abdominal closure and at the conclusion of the case. Diagnosis: Stroke: No - Discharge Data Discharge Date: 03/06/19 Discharge Disposition: Home, Self-Care 01 Condition: Good - Discharge Diagnosis/Problem(s) (1) 37 weeks gestation of SNOMED Code(s): 23350033 ICD Code: Z3A.37 - 37 WEEKS GESTATION OF Status: Acute Current Visit: Yes (2) Gestational hypertension SNOMED Code(s): 575207906 ICD Code: O13.9 - GESTATIONAL HTN W/O SIGNIFICANT PROTEINURIA, UNSP TRIMESTER Status: Acute Current Visit: Yes Qualifiers: Trimester: third trimester Qualified Code(s): O13.3 - Gestational [ -induced] hypertension without significant proteinuria, third trimester (3) IUGR (intrauterine growth restriction) SNOMED Code(s): 15170555 ICD Code: FOV4450 - Status: Acute Current Visit: Yes (4) S/P repeat low transverse SNOMED Code(s): 054503565, 96566915, 585636907, 901051929, 134179131 ICD Code: Z98.891 - HISTORY OF UTERINE SCAR FROM PREVIOUS SURGERY Status: Acute Current Visit: Yes - Patient Summary/Data Operative Procedure(s) Performed: Repeat low transverse Complications: None Consults: None Hospital Course: Amirah Delcid was admitted for scheduled repeat section in the setting of gestational hypertension and intrauterine growth restriction. She was taken back to the OR and given spinal injection for anesthesia. She was prepped and draped in the normal fashion. On 03/04/2019 she had a repeat delivery of a live female infant at 0836. Apgars of 9 and 9. Weight of 5 lbs. 12 oz. She was closed in a normal fashion. There were no complications with the procedure. Please see the operative report for full details. Her post operative course was uneventful. Her pain was well controlled and she had minimal lochia. She was ambulating, tolerating a regular diet and voiding normally. She was passing flatus and has not had a bowel movement. She was breast feeding out difficulty. She was afebrile and her hematocrit was 31.1 on POD #1. She desired to be discharged home on the morning of POD #2. Her blood type is B+. - Patient Instructions Diet: Regular Diet as Tolerated Activity: Apply Ice, As Tolerated, No Lifting Over 25 Pounds Activity, Other: Nothing in the vagina for 6 weeks Driving: Do Not Drive (While taking narcotic medications or having significant pain.) Showering/Bathing: May Shower Wound/Incision Care: Keep Operative Site/Wound Site Clean and Dry Notify Provider of: Fever, Increased Pain, Swelling and Redness, Drainage, Nausea and/or Vomiting Other/Special Instructions: Please contact your physician's office if you note any bleeding or pus coming from the abdominal incision. Please contact your physician's office if you have heavy vaginal bleeding enough to soak a pad in less than an hour for several hours. Monitor for any signs of an infection in the breasts with severe pain or redness of the breast. - Discharge Plan *PRESCRIPTION DRUG MONITORING PROGRAM REVIEWED*: Yes *COPY OF PRESCRIPTION DRUG MONITORING REPORT IN PATIENT MERVAT: Yes Prescriptions/Med Rec: Acetaminophen/oxyCODONE [Percocet 325-5 MG] 1 - 2 tab PO Q6H PRN #30 tablet PRN Reason: Pain Home Medications: Home Meds Loratadine [Claritin] 10 mg PO DAILY PRN 03/04/19 [History] PNV95/Ferrous Fumarate/FA [ Tablet] 1 tab PO DAILY 03/04/19 [History] Acetaminophen/oxyCODONE [Percocet 325-5 MG] 1 - 2 tab PO Q6H PRN #30 tablet [Rx] Docusate Sodium [Colace] 100 mg PO Q12H PRN cap 03/06/19 [Rx] Ibuprofen [Motrin] 600 mg PO Q6H PRN tablet 03/06/19 [Rx] Lanolin [Lansinoh HPA] 1 applic TOP ASDIRECTED PRN tube 03/06/19 [Rx] Patient Handouts: Delivery, Care After Referrals: Sharon Landrum MD [Physician] - (Follow-up in 1 week for routine blood pressure and check or earlier as needed.) - Discharge Summary/Plan Comment DC Time >30 min.: No - Patient Data Vitals - Most Recent: Last Vital Signs Temp 36.8 C 03/06/19 09:27 Pulse 88 03/06/19 09:27 Resp 16 03/06/19 09:27 BP 125/80 03/06/19 09:27 Pulse Ox 97 03/06/19 09:27 Weight - Most Recent: 94.166 kg I&O - Last 24 hours: Intake & Output 03/05/19 03/06/19 03/06/19 22:59 06:59 14:59 Intake Total 480 Balance 480 Med Orders - Current: Current Medications Diphenhydramine HCl (Benadryl) 25 mg IVPUSH Q6H PRN PRN Reason: Itching or Nausea Docusate Sodium (Colace) 100 mg PO Q12H PRN PRN Reason: Constipation Last Admin: 03/06/19 09:25 Dose: 100 mg Emollient Ointment (Lansinoh Hpa) 0 gm TOP ASDIRECTED PRN PRN Reason: Sore Nipples Ibuprofen (Motrin) 600 mg PO Q6H PRN PRN Reason: mild pain or fever Last Admin: 03/06/19 09:22 Dose: 600 mg Naloxone HCl (Narcan) 0.1 mg IVPUSH SEECOMMENT PRN PRN Reason: Respiratory Depression Ondansetron HCl (Zofran) 4 mg IV Q8H PRN PRN Reason: Nausea/Vomiting Oxycodone/Acetaminophen (Percocet 325-5 Mg) 2 tab PO Q4H PRN PRN Reason: Pain (moderate 4-6) Last Admin: 03/06/19 03:16 Dose: 2 tab Discontinued Medications Cefazolin Sodium (Ancef) Confirm Administered Dose 2 gm .ROUTE .STK-MED ONE Stop: 03/04/19 07:03 Citric Acid/Sodium Citrate (Bicitra Solution) 30 ml PO ONETIME ONE Stop: 03/04/19 06:31 Last Admin: 03/04/19 06:34 Dose: 30 ml Cefazolin Sodium/Dextrose 2 gm (/ Premix) 50 mls @ 100 mls/hr IV ONETIME ONE Stop: 03/04/19 07:29 Last Admin: 03/04/19 11:24 Dose: Not Given Lactated Ringer's (Ringers, Lactated) 1,000 mls @ 125 mls/hr IV ASDIRECTED [facility] Last Admin: 03/04/19 06:34 Dose: 125 mls/hr Oxytocin/Lactated Ringer's (Pitocin In Lr 10 Units/1,000 Ml) 10 unit in 1,000 mls @ 100 mls/hr IV ASDIRECTED [facility]; Protocol Dextrose/Lactated Ringer's (Dextrose 5%-Lactated Ringers) 1,000 mls @ 125 mls/ hr IV ASDIRECTED [facility] Stop: 03/04/19 18:46 Last Admin: 03/04/19 14:42 Dose: 125 mls/hr Ketorolac Tromethamine (Toradol) Confirm Administered Dose 30 mg .ROUTE .STK- MED ONE Stop: 03/04/19 07:03 Ketorolac Tromethamine (Toradol) 30 mg IVPUSH Q6H [facility] Stop: 03/05/19 03:01 Last Admin: 03/05/19 03:51 Dose: 30 mg Metoclopramide HCl (Reglan) 10 mg IVPUSH ONETIME ONE Stop: 03/04/19 06:31 Last Admin: 03/04/19 06:35 Dose: 10 mg Misoprostol (Cytotec) Confirm Administered Dose 600 mcg .ROUTE .STK-MED ONE Stop: 03/04/19 08:44 Morphine Sulfate (Duramorph Pf) Confirm Administered Dose 1 mg .ROUTE .STK-MED ONE Stop: 03/04/19 07:02 Ondansetron HCl (Zofran) Confirm Administered Dose 4 mg .ROUTE .STK-MED ONE Stop: 03/04/19 07:03 Oxytocin (Pitocin) Confirm Administered Dose 10 unit .ROUTE .STK-MED ONE Stop: 03/04/19 07:03 Sodium Chloride (Saline Flush) 10 ml FLUSH ASDIRECTED PRN PRN Reason: Keep Vein Open
== END 2019-03-06 11:05 | disposition home or self-care (01) | DRG 540 ==
LOC: JD.OB 05:32
PROVIDERS: ADMIT Obstetrics & Gynecology; ATTEND Obstetrics & Gynecology
PROC: 10D00Z1 Extraction of Products of Conception, Low, Open Approach (ICD-10-PCS; principal; 2019-03-04)
DX: O34.211 Maternal care for low transverse scar from previous cesarean delivery (principal); O36.5930 Maternal care for other known or suspected poor fetal growth, third trimester, not applicable or unspecified; Z3A.37 37 weeks gestation of pregnancy; Z37.0 Single live birth; O13.4 Gestational [pregnancy-induced] hypertension without significant proteinuria, complicating childbirth; N85.8 Other specified noninflammatory disorders of uterus
CPT/HCPCS: 01961; 36415; 59025; 82565; 84450; 84460; 85025; 85027; 85049; 86592; 86850; 86900; 86901; A9270-GY; J0690; J1885; J2274; J2405; J2590; J2765; J7042; J7120

== ENCOUNTER 2020-11-28 05:35 | Inpatient (IN) | payer BC ==
[~2020-11-28 05:35] MED LIST: Sodium Chloride 0.9% 10 ML Syringe FLUSH PRN
[2020-11-28] MEDS ORDERED: Metoclopramide 10 MG/2 ML SDV ONE (06:43)
[2020-11-28] MEDS ORDERED: Citric Acid/Sodium Citrate Solution 30 ML Cup ONE (06:44)
[2020-11-28] MEDS ORDERED: Lactated Ringers 1,000 ML ONE ×2 (06:44→07:50)
[2020-11-28] MEDS ORDERED: Citric Acid/Sodium Citrate Solution 30 ML Cup PO ONE (06:45)
[2020-11-28] MEDS ORDERED: Metoclopramide 10 MG/2 ML SDV IVPUSH ONE (06:45)
[2020-11-28] MEDS: Lactated Ringers 1,000 ML IV SCH ×2 (06:53→09:12)
[2020-11-28] MEDS ORDERED: Oxytocin/Lactated Ringers 10 UNIT/1,000 ML BAG IV SCH (07:00)
[2020-11-28] MEDS ORDERED: fentaNYL 100 MCG/2 ML SDV ONE (07:03)
[2020-11-28] MEDS ORDERED: Oxytocin 10 Units/1 ML SDV ONE (07:04)
[2020-11-28] MEDS ORDERED: Morphine PF 10 MG/10 ML SDV ONE (07:04)
[2020-11-28] MEDS ORDERED: ceFAZolin 1 GM Vial ONE (07:06)
--- NOTE | 2020-11-28 07:22 | PCM.OPNOTE ---
- General Post-Op/Procedure Note Date of Surgery/Procedure: 11/28/20 Operative Procedure(s): Repeat low transverse Findings: Moderate amount of scar tissue between the rectus and fascia. Minimal adhesive disease between the bladder and lower uterine segment. Thin JÚNIOR c/w findings at prior . Baby girl in a vertex presentation. Weight of 7 lbs 7 oz. APGARS of 7 & 9. Pre Op Diagnosis: History of 4 prior c-sections - thin JÚNIOR at last delivery. 37 3/7 wks gestation Post-Op Diagnosis: Same Anesthesia Technique: Spinal Primary Surgeon: Sharon Landrum Secondary Surgeon: Gemma Solano Anesthesia Provider: Himanshu Lundy Reason Inside Sales Trainer Was Necessary: BMI >30, speed/safety of procedure Pathology: Cord blood collected. Placenta discarded. Fluid Replacement, Intraop: 2,000 Output, Urine Amount: 150 EBL in mLs: 700 Complications: None Condition: Good Free Text/Narrative:: The risks, benefits, indications, potential complications, and alternatives were explained to the patient and informed consent obtained. After induction of anesthesia, the patient was placed in a supine position and then draped and prepped in the usual sterile manner. A Pfannenstiel incision was made and carried down through the subcutaneous tissue to the fascia. Fascial incision was made and extended transversely. The fascia was from the underlying rectus tissue superiorly and inferiorly. The peritoneum was identified and entered. Peritoneal incision was extended longitudinally. The utero-vesical peritoneal reflection was incised transversely and the bladder flap was bluntly freed from the lower uterine segment. A low transverse uterine incision was made sharply with a scalpel and extended bluntly in a cephalocaudad direction. A baby girl was delivered from a vertex presentation with APGARS as above. After the umbilical cord was clamped and cut cord blood was obtained for evaluation. The placenta was removed intact and appeared normal. The uterus was exteriorized and cleared of clots. The uterine outline, tubes and ovaries appeared normal. The uterine incision was closed with running locked sutures of 0 Vicryl. Hemostasis was noted. The uterus was then placed back into the abdomen. The infracolic gutters were cleared of blood clots. The fascia was then reapproximated with running sutures of 0 Vicryl. The subcutaneous tissue was irrigated with sterile warm normal saline, hemostasis obtained with cautery. This layer was also closed with a running 0 Vicryl. The skin was reapproximated with running Subcuticular 4-0 monocryl sutures. Instrument, sponge, and needle counts were correct prior the abdominal closure and at the conclusion of the case.
--- NOTE | 2020-11-28 07:25 | PCM.PREANE ---
Preanesthetic Assessment - Procedure Proposed Procedure: Repeat - Anesthesia/Transfusion/Family Hx Anesthesia History: Prior Anesthesia Without Reaction Transfusion History: No Prior Transfusion(s) Intubation History: Unknown - Review of Systems General: No Symptoms Pulmonary: No Symptoms Cardiovascular: No Symptoms Gastrointestinal: No Symptoms Neurological: No Symptoms Other: Reports: None - Physical Assessment NPO Status Date: 11/27/20 NPO Status Time: 23:00 ASA Class: 2 Mental Status: Alert & Oriented x3 Airway Class: Mallampati = 2 Dentition: Reports: Normal Dentition Thyro-Mental Finger Breadths: 3 Mouth Opening Finger Breadths: 3 ROM/Head Extension: Full Lungs: Clear to Auscultation, Normal Respiratory Effort Cardiovascular: Regular Rate, Regular Rhythm - Lab Values: Laboratory Last Values SARS-CoV-2 (PCR) Not detected (NOT DETECT) 11/24/20 10:30 - Allergies Allergies/Adverse Reactions: Allergies Allergy/AdvReac Type Severity Reaction Status Date / Time No Known Allergies Allergy Verified 11/27/20 23:47 - Acknowledgements Anesthesia Type Planned: Spinal Pt an Appropriate Candidate for the Planned Anesthesia: Yes Alternatives and Risks of Anesthesia Discussed w Pt/Guardian: Yes Pt/Guardian Understands and Agrees with Anesthesia Plan: Yes PreAnesthesia Questionnaire HEENT History: Reports: Impaired Vision Other HEENT History: wears glasses Cardiovascular History: Reports: Hypertension Other Cardiovascular History: Gestational HTN Respiratory History: Reports: Other (See Below) Other Respiratory History: Pt snores Gastrointestinal History: Reports: GERD Genitourinary History: Reports: Renal Calculus 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: , Spontaneous Endocrine/Metabolic History: Reports: Obesity/BMI 30+ - Past Surgical History HEENT Surgical History: Reports: Oral Surgery Female Surgical History: Reports: Section, Lithotripsy/ESWL Other Female Surgeries/Procedures: C/S x4, lithotripsy x2 - SUBSTANCE USE Tobacco Use Status *Q: Never Tobacco User Tobacco Use Within Last Twelve Months: No Second Hand Smoke Exposure: No Recreational Drug Use History: No - HOME MEDS Home Medications: Home Meds Aspirin [Aspirin EC] 81 mg PO DAILY 11/27/20 [History] Loratadine [Claritin] 10 mg PO DAILY PRN 11/27/20 [History] No122/Iron/Folic Acid [ Multi Tablet] 1 each PO DAILY 11/27/20 [History] - CURRENT (IN HOUSE) MEDS Current Meds: Current Medications Cefazolin Sodium/Dextrose 2 gm (/ Premix) 50 mls @ 100 mls/hr IV ONETIME ONE Stop: 11/28/20 07:59 Oxytocin/Lactated Ringer's (Pitocin In Lr 10 Units/1,000 Ml) 10 unit in 1,000 mls @ 100 mls/hr IV ASDIRECTED MARY Lactated Ringer's (Ringers, Lactated) 1,000 mls @ 125 mls/hr IV ASDIRECTED MARY Last Admin: 11/28/20 06:53 Dose: 125 mls/hr Documented by: Sodium Chloride (Saline Flush) 10 ml FLUSH ASDIRECTED PRN PRN Reason: Keep Vein Open Discontinued Medications Cefazolin Sodium (Ancef) Confirm Administered Dose 2 gm .ROUTE .STK-MED ONE Stop: 11/28/20 07:07 Citric Acid/Sodium Citrate (Bicitra Solution) 30 ml PO ONETIME ONE Stop: 11/28/20 06:46 Last Admin: 11/28/20 06:56 Dose: 30 ml Documented by: Citric Acid/Sodium Citrate (Bicitra Solution) Confirm Administered Dose 30 ml .ROUTE .STK-MED ONE Stop: 11/28/20 06:45 Fentanyl (Sublimaze) Confirm Administered Dose 100 mcg .ROUTE .STK-MED ONE Stop: 11/28/20 07:04 Lactated Ringer's (Ringers, Lactated) Confirm Administered Dose 1,000 mls @ as directed .ROUTE .STK-MED ONE Stop: 11/28/20 06:45 Last Admin: 11/28/20 06:00 Dose: 999 mls/hr Documented by: Metoclopramide HCl (Reglan) 10 mg IVPUSH ONETIME ONE Stop: 11/28/20 06:46 Last Admin: 11/28/20 06:57 Dose: 10 mg Documented by: Metoclopramide HCl (Reglan) Confirm Administered Dose 10 mg .ROUTE .STK-MED ONE Stop: 11/28/20 06:44 Morphine Sulfate (Duramorph Pf) Confirm Administered Dose 10 mg .ROUTE .STK-MED ONE Stop: 11/28/20 07:05 Oxytocin (Pitocin) Confirm Administered Dose 20 unit .ROUTE .STK-MED ONE Stop: 11/28/20 07:05
[2020-11-28] MEDS ORDERED: ceFAZolin 2 GM in Premix Bag 1 BAG IV ONE (07:30)
[2020-11-28] MEDS ORDERED: Ondansetron 4 MG/2 ML SDV IVPUSH PRN (07:33)
[2020-11-28] MEDS ORDERED: fentaNYL 100 MCG/2 ML SDV IVPUSH PRN (07:33)
[2020-11-28] MEDS ORDERED: diphenhydrAMINE 50 MG/ML SDV IVPUSH PRN ×2 (07:33→09:57)
--- NOTE | 2020-11-28 08:52 | PCM.POSTAN ---
POST ANESTHESIA ASSESSMENT - MENTAL STATUS Mental Status: Alert, Oriented - VITAL SIGNS Vital Signs: Last Vital Signs Temp 97.6 F 11/28/20 08:37 Pulse 87 11/28/20 08:37 Resp 11 L 11/28/20 08:37 BP 112/76 11/28/20 08:37 Pulse Ox 95 11/28/20 08:37 - RESPIRATORY Respiratory Status: Respiratory Rate WNL, Airway Patent, O2 Saturation Stable - CARDIOVASCULAR CV Status: Pulse Rate WNL, Blood Pressure Stable - GASTROINTESTINAL GI Status: No Symptoms - PAIN Pain Score: 0 (post SAB) - POST OP HYDRATION Hydration Status: Adequate & Stable
[2020-11-28] MEDS ORDERED: Ketorolac 30 MG/ML SDV IVPUSH SCH (09:15)
[2020-11-28] MEDS ORDERED: Dextrose 5%-Lactated Ringers 1,000 ML IV SCH (09:57)
[2020-11-28] MEDS ORDERED: Naloxone 0.4 MG/ML SDV IVPUSH PRN (09:57)
[2020-11-28] MEDS ORDERED: Acetaminophen/oxyCODONE 325-5 MG Tab PO PRN (09:57)
[2020-11-28] MEDS ORDERED: ePHEDrine 50 MG/ML SDV IVPUSH PRN (09:57)
[2020-11-28] MEDS ORDERED: Sodium Chloride 0.9% 10 ML Syringe FLUSH PRN (09:57)
[2020-11-28] MEDS ORDERED: Ondansetron 4 MG/2 ML SDV IV PRN (09:57)
[2020-11-28] MEDS: Ketorolac 30 MG/ML SDV IVPUSH SCH ×2 (15:59→20:45)
[2020-11-29] MEDS: Ketorolac 30 MG/ML SDV IVPUSH SCH (03:36)
--- NOTE | 2020-11-29 07:06 | PCM48HPAN ---
Post Anesthesia Note - EVALUATION WITHIN 48HRS OF ANESTHETIC Vital Signs in Normal Range: Yes Patient Participated in Evaluation: Yes Respiratory Function Stable: Yes Airway Patent: Yes Cardiovascular Function Stable: Yes Hydration Status Stable: Yes Pain Control Satisfactory: Yes Nausea and Vomiting Control Satisfactory: Yes Mental Status Recovered: Yes Vital Signs: Last Vital Signs Temp 36.6 C 11/29/20 03:43 Pulse 73 11/29/20 03:43 Resp 16 11/29/20 03:43 BP 111/80 11/29/20 03:43 Pulse Ox 97 11/29/20 03:43
--- NOTE | 2020-11-29 07:19 | PCM.PNPP ---
- General Info Date of Service: 11/29/20 Functional Status: Reports: Pain Controlled, Tolerating Diet, Ambulating, Urinating - Review of Systems General: Reports: No Symptoms Pulmonary: Reports: No Symptoms Cardiovascular: Reports: No Symptoms Gastrointestinal: Reports: Abdominal Pain (managed with medications ) Musculoskeletal: Reports: No Symptoms Neurological: Reports: No Symptoms Psychiatric: Reports: No Symptoms - Patient Data Vital Signs - Most Recent: Last Vital Signs Temp 36.6 C 11/29/20 03:43 Pulse 73 11/29/20 03:43 Resp 16 11/29/20 03:43 BP 111/80 11/29/20 03:43 Pulse Ox 97 11/29/20 03:43 Weight - Most Recent: 94.347 kg I&O - Last 24 Hours: Intake & Output 11/28/20 11/29/20 11/29/20 22:59 06:59 14:59 Intake Total 2140 Output Total 1500 850 Balance 640 -850 Lab Results - Last 24 Hours: Laboratory Results - last 24 hr 11/28/20 11/28/20 11/28/20 Range/Units 06:10 06:10 06:10 WBC 7.41 (3.98-10.04) K/mm3 RBC 4.05 (3.98-5.22) M/mm3 Hgb 11.5 (11.2-15.7) gm/dl Hct 34.9 (34.1-44.9) % MCV 86.2 (79.4-94.8) fl MCH 28.4 (25.6-32.2) pg MCHC 33.0 (32.2-35.5) g/dl RDW Std Deviation 41.8 (36.4-46.3) fL Plt Count 171 L (182-369) K/mm3 MPV 11.6 (9.4-12.3) fl Neut % (Auto) 61.9 (34.0-71.1) % Lymph % (Auto) 26.7 (19.3-51.7) % Alcorn % (Auto) 8.2 (4.7-12.5) % Eos % (Auto) 2.4 (0.7-5.8) Baso % (Auto) 0.3 (0.1-1.2) % Neut # (Auto) 4.58 (1.56-6.13) K/mm3 Lymph # (Auto) 1.98 (1.18-3.74) K/mm3 Alcorn # (Auto) 0.61 H (0.24-0.36) K/mm3 Eos # (Auto) 0.18 (0.04-0.36) K/mm3 Baso # (Auto) 0.02 (0.01-0.08) K/mm3 RPR Non-reactive (NONREACTIVE) Blood Type B POSITIVE Gel Antibody Screen Negative 11/29/20 Range/Units 05:13 WBC 6.98 (3.98-10.04) K/mm3 RBC 3.52 L (3.98-5.22) M/mm3 Hgb 9.8 L D (11.2-15.7) gm/dl Hct 30.8 L (34.1-44.9) % MCV 87.5 (79.4-94.8) fl MCH 27.8 (25.6-32.2) pg MCHC 31.8 L (32.2-35.5) g/dl RDW Std Deviation 41.6 (36.4-46.3) fL Plt Count 141 L (182-369) K/mm3 MPV 11.8 (9.4-12.3) fl Neut % (Auto) (34.0-71.1) % Lymph % (Auto) (19.3-51.7) % Alcorn % (Auto) (4.7-12.5) % Eos % (Auto) (0.7-5.8) Baso % (Auto) (0.1-1.2) % Neut # (Auto) (1.56-6.13) K/mm3 Lymph # (Auto) (1.18-3.74) K/mm3 Alcorn # (Auto) (0.24-0.36) K/mm3 Eos # (Auto) (0.04-0.36) K/mm3 Baso # (Auto) (0.01-0.08) K/mm3 RPR (NONREACTIVE) Blood Type Gel Antibody Screen Med Orders - Current: Current Medications Diphenhydramine HCl (Benadryl) 25 mg IVPUSH Q6H PRN PRN Reason: Pruritis Diphenhydramine HCl (Benadryl) 25 mg IVPUSH Q6H PRN PRN Reason: Itching or Nausea Ephedrine Sulfate (Ephedrine Sulfate) 5 mg IVPUSH SEECOMMENT PRN PRN Reason: Other Fentanyl (Sublimaze) 50 mcg IVPUSH Q5M PRN PRN Reason: Pain Ibuprofen (Motrin) 600 mg PO Q6H PRN PRN Reason: mild pain or fever Ketorolac Tromethamine (Toradol) 30 mg IVPUSH ONETIME MARY Last Admin: 11/28/20 09:11 Dose: 30 mg Documented by: Naloxone HCl (Narcan) 0.1 mg IVPUSH SEECOMMENT PRN PRN Reason: Respiratory Depression Ondansetron HCl (Zofran) 4 mg IVPUSH ONETIME PRN PRN Reason: Nausea/Vomiting Ondansetron HCl (Zofran) 4 mg IV Q8H PRN PRN Reason: Nausea/Vomiting Oxycodone/Acetaminophen (Percocet 325-5 Mg) 1 tab PO Q4H PRN PRN Reason: Pain (moderate 4-6) Oxycodone/Acetaminophen (Percocet 325-5 Mg) 2 tab PO Q4H PRN PRN Reason: Pain (severe 7-10) Sodium Chloride (Saline Flush) 10 ml FLUSH ASDIRECTED PRN PRN Reason: Keep Vein Open Discontinued Medications Cefazolin Sodium (Ancef) Confirm Administered Dose 2 gm .ROUTE .STK-MED ONE Stop: 11/28/20 07:07 Citric Acid/Sodium Citrate (Bicitra Solution) 30 ml PO ONETIME ONE Stop: 11/28/20 06:46 Last Admin: 11/28/20 06:56 Dose: 30 ml Documented by: Citric Acid/Sodium Citrate (Bicitra Solution) Confirm Administered Dose 30 ml .ROUTE .STK-MED ONE Stop: 11/28/20 06:45 Last Admin: 11/28/20 16:53 Dose: Not Given Documented by: Fentanyl (Sublimaze) Confirm Administered Dose 100 mcg .ROUTE .STK-MED ONE Stop: 11/28/20 07:04 Cefazolin Sodium/Dextrose 2 gm (/ Premix) 50 mls @ 100 mls/hr IV ONETIME ONE Stop: 11/28/20 07:59 Last Admin: 11/28/20 16:53 Dose: Not Given Documented by: Oxytocin/Lactated Ringer's (Pitocin In Lr 10 Units/1,000 Ml) 10 unit in 1,000 mls @ 100 mls/hr IV ASDIRECTED MARY Lactated Ringer's (Ringers, Lactated) 1,000 mls @ 125 mls/hr IV ASDIRECTED [facility] Last Admin: 11/28/20 09:12 Dose: 125 mls/hr Documented by: Lactated Ringer's (Ringers, Lactated) Confirm Administered Dose 1,000 mls @ as directed .ROUTE .STK-MED ONE Stop: 11/28/20 06:45 Last Admin: 11/28/20 06:00 Dose: 999 mls/hr Documented by: Lactated Ringer's (Ringers, Lactated) Confirm Administered Dose 1,000 mls @ as directed .ROUTE .STK-MED ONE Stop: 11/28/20 07:51 Dextrose/Lactated Ringer's (Dextrose 5%-Lactated Ringers) 1,000 mls @ 125 mls/hr IV ASDIRECTED [facility] Stop: 11/28/20 17:56 Last Admin: 11/28/20 16:52 Dose: 125 mls/hr Documented by: Ketorolac Tromethamine (Toradol) 30 mg IVPUSH Q6H [facility] Stop: 11/29/20 03:01 Last Admin: 11/29/20 03:36 Dose: 30 mg Documented by: Metoclopramide HCl (Reglan) 10 mg IVPUSH ONETIME ONE Stop: 11/28/20 06:46 Last Admin: 11/28/20 06:57 Dose: 10 mg Documented by: Metoclopramide HCl (Reglan) Confirm Administered Dose 10 mg .ROUTE .STK-MED ONE Stop: 11/28/20 06:44 Last Admin: 11/28/20 16:53 Dose: Not Given Documented by: Morphine Sulfate (Duramorph Pf) Confirm Administered Dose 10 mg .ROUTE .STK-MED ONE Stop: 11/28/20 07:05 Oxytocin (Pitocin) Confirm Administered Dose 20 unit .ROUTE .STK-MED ONE Stop: 11/28/20 07:05 Sodium Chloride (Saline Flush) 10 ml FLUSH ASDIRECTED PRN PRN Reason: Keep Vein Open - Infant Interaction Infant Disposition, : in Room with Family Interaction: Holding Infant Infant Feeding: Attempted ; Nursed Fair/Poor Support Person: - Recovery Exam Fundal Tone: Firm Fundal Level: At Umbilicus Fundal Placement: Midline Lochia Amount: Small Lochia Color: Rubra/Red Perineum Description: Intact, Minimal Bruising/Swelling Urinary Elimination: Other (see below) (catheter removed ) - Exam General: Alert, Oriented, Cooperative Lungs: Clear to Auscultation, Normal Respiratory Effort Cardiovascular: Regular Rate, Regular Rhythm GI/Abdominal Exam: Soft, Tender (appropriate ) Extremities: Normal Inspection Skin: Warm, Dry, Intact Wound/Incisions: Healing Well, No Drainage - Problem List & Annotations (1) 37 weeks gestation of SNOMED Code(s): 08421121 Code(s): Z3A.37 - 37 WEEKS GESTATION OF Status: Acute Current Visit: No (2) S/P repeat low transverse SNOMED Code(s): 173333060, 67664396, 197286267, 025803231, 910716502 Code(s): Z98.891 - HISTORY OF UTERINE SCAR FROM PREVIOUS SURGERY Status: Acute Current Visit: No - Problem List Review Problem List Initiated/Reviewed/Updated: Yes - My Orders Last 24 Hours: My Active Orders 11/28/20 09:15 Ketorolac [Toradol] 30 mg IVPUSH ONETIME 11/28/20 09:57 Acetaminophen/oxyCODONE [Percocet 325-5 MG] 1 tab PO Q4H PRN Acetaminophen/oxyCODONE [Percocet 325-5 MG] 2 tab PO Q4H PRN Naloxone [Narcan] 0.1 mg IVPUSH SEECOMMENT PRN Ondansetron [Zofran] 4 mg IV Q8H PRN Sodium Chloride 0.9% [Saline Flush] 10 ml FLUSH ASDIRECTED PRN diphenhydrAMINE [Benadryl] 25 mg IVPUSH Q6H PRN ePHEDrine [ePHEDrine sulfate] 5 mg IVPUSH SEECOMMENT PRN 11/28/20 09:57 Activity as Tolerated [RC] .Routine Antiembolic Devices [RC] PER UNIT ROUTINE Communication Order [RC] PER UNIT ROUTINE Intake and Output [RC] Q4HR May Shower [RC] PER UNIT ROUTINE Notify Provider Intake and Out [RC] ASDIRECTED RT Incentive Spirometry [RC] Q2HWA Assess Lochia [WOMSER] Per Unit Routine Assess Uterine Involution [WOMSER] Per Unit Routine Breast Pump [WOMSER] Per Unit Routine Convert IV to Saline Lock [OM.PC] Routine Peripheral IV Discontinue [OM.PC] Routine Sequential Compression Device [OM.PC] Per Unit Routine 11/28/20 Lunch Regular Diet [DIET] 11/29/20 09:00 Ibuprofen [Motrin] 600 mg PO Q6H PRN - Assessment Assessment:: POD#1 - Plan Plan:: * Routine cares * Breast feeding * Discharge home in 1-2 days
[2020-11-29] MEDS: Acetaminophen/oxyCODONE 325-5 MG Tab PO PRN ×3 (07:55→19:51)
[2020-11-29] MEDS: Ibuprofen 600 MG Tab PO PRN ×2 (11:35→17:37)
[2020-11-29] MEDS: Docusate Sodium 100 MG Cap PO PRN (19:52)
[2020-11-30] MEDS: Acetaminophen/oxyCODONE 325-5 MG Tab PO PRN ×2 (02:23→09:01)
--- NOTE | 2020-11-30 06:40 | PCM.DCSUM1 ---
Discharge Summary - Discharge Data Discharge Date: 11/30/20 Discharge Disposition: Home, Self-Care 01 Condition: Good - Referral to Home Health Primary Care Physician: Sharon Landrum MD - Discharge Diagnosis/Problem(s) (1) 37 weeks gestation of SNOMED Code(s): 61991976 ICD Code: Z3A.37 - 37 WEEKS GESTATION OF Status: Acute (2) S/P repeat low transverse SNOMED Code(s): 542094508, 72557455, 489338304, 419180119, 688691697 ICD Code: Z98.891 - HISTORY OF UTERINE SCAR FROM PREVIOUS SURGERY Status: Acute - Patient Summary/Data Operative Procedure(s) Performed: Repeat low transverse Complications: None Consults: None Recommended Follow-up Testing/Procedures: 2-3 weeks for for check Hospital Course: 30 y/o at 37 3/7 wks who presented for planned repeat due to findings of thin JÚNIOR at last delivery. Surgery was uncomplicated. See operative note. did well and was discharged home on POD#2 - Patient Instructions Diet: Regular Diet as Tolerated Activity: No Lifting Over 10 Pounds (10-15 lbs for 6 weeks ) Activity, Other: Pelvic rest for 6 weeks Driving: Do Not Drive (While taking pain medications ) Showering/Bathing: May Shower, No Tub Bathing/Swimming Wound/Incision Care: Keep Operative Site/Wound Site Clean and Dry Notify Provider of: Fever, Increased Pain, Swelling and Redness, Drainage, Nausea and/or Vomiting - Discharge Plan *PRESCRIPTION DRUG MONITORING PROGRAM REVIEWED*: No *COPY OF PRESCRIPTION DRUG MONITORING REPORT IN PATIENT MERVAT: No Prescriptions/Med Rec: Acetaminophen/oxyCODONE [Percocet 325-5 MG] 1 - 2 tab PO Q6H PRN #25 tablet PRN Reason: Pain (Severe 7-10) Home Medications: Home Meds No122/Iron/Folic Acid [ Multi Tablet] 1 each PO DAILY 11/27/20 [History] Acetaminophen/oxyCODONE [Percocet 325-5 MG] 1 - 2 tab PO Q6H PRN #25 tablet 11/29/20 [Rx] Ibuprofen [Motrin] 600 mg PO Q6H PRN tablet 11/29/20 [Rx] Patient Handouts: Care After Delivery Referrals: Sharon Landrum MD [Primary Care Provider] - (3 weeks for check ) - Discharge Summary/Plan Comment DC Time >30 min.: No - Patient Data Vitals - Most Recent: Last Vital Signs Temp 36.7 C 11/30/20 03:27 Pulse 86 11/30/20 03:27 Resp 15 11/30/20 03:27 BP 124/86 11/30/20 03:27 Pulse Ox 97 11/30/20 03:27 Weight - Most Recent: 94.347 kg I&O - Last 24 hours: Intake & Output 11/29/20 11/29/20 11/30/20 14:59 22:59 06:59 Intake Total 1040 50 Output Total 1400 Balance -360 50 Med Orders - Current: Current Medications Diphenhydramine HCl (Benadryl) 25 mg IVPUSH Q6H PRN PRN Reason: Pruritis Diphenhydramine HCl (Benadryl) 25 mg IVPUSH Q6H PRN PRN Reason: Itching or Nausea Docusate Sodium (Colace) 100 mg PO BID PRN PRN Reason: Constipation Last Admin: 11/29/20 19:52 Dose: 100 mg Documented by: Ephedrine Sulfate (Ephedrine Sulfate) 5 mg IVPUSH SEECOMMENT PRN PRN Reason: Other Fentanyl (Sublimaze) 50 mcg IVPUSH Q5M PRN PRN Reason: Pain Ibuprofen (Motrin) 600 mg PO Q6H PRN PRN Reason: mild pain or fever Last Admin: 11/29/20 17:37 Dose: 600 mg Documented by: Ketorolac Tromethamine (Toradol) 30 mg IVPUSH ONETIME MARY Last Admin: 11/28/20 09:11 Dose: 30 mg Documented by: Naloxone HCl (Narcan) 0.1 mg IVPUSH SEECOMMENT PRN PRN Reason: Respiratory Depression Ondansetron HCl (Zofran) 4 mg IVPUSH ONETIME PRN PRN Reason: Nausea/Vomiting Ondansetron HCl (Zofran) 4 mg IV Q8H PRN PRN Reason: Nausea/Vomiting Oxycodone/Acetaminophen (Percocet 325-5 Mg) 1 tab PO Q4H PRN PRN Reason: Pain (moderate 4-6) Oxycodone/Acetaminophen (Percocet 325-5 Mg) 2 tab PO Q4H PRN PRN Reason: Pain (severe 7-10) Last Admin: 11/30/20 02:23 Dose: 2 tab Documented by: Sodium Chloride (Saline Flush) 10 ml FLUSH ASDIRECTED PRN PRN Reason: Keep Vein Open Discontinued Medications Cefazolin Sodium (Ancef) Confirm Administered Dose 2 gm .ROUTE .STK-MED ONE Stop: 11/28/20 07:07 Citric Acid/Sodium Citrate (Bicitra Solution) 30 ml PO ONETIME ONE Stop: 11/28/20 06:46 Last Admin: 11/28/20 06:56 Dose: 30 ml Documented by: Citric Acid/Sodium Citrate (Bicitra Solution) Confirm Administered Dose 30 ml .ROUTE .STK-MED ONE Stop: 11/28/20 06:45 Last Admin: 11/28/20 16:53 Dose: Not Given Documented by: Fentanyl (Sublimaze) Confirm Administered Dose 100 mcg .ROUTE .STK-MED ONE Stop: 11/28/20 07:04 Cefazolin Sodium/Dextrose 2 gm (/ Premix) 50 mls @ 100 mls/hr IV ONETIME ONE Stop: 11/28/20 07:59 Last Admin: 11/28/20 16:53 Dose: Not Given Documented by: Oxytocin/Lactated Ringer's (Pitocin In Lr 10 Units/1,000 Ml) 10 unit in 1,000 mls @ 100 mls/hr IV ASDIRECTED [facility] Lactated Ringer's (Ringers, Lactated) 1,000 mls @ 125 mls/hr IV ASDIRECTED [facility] Last Admin: 11/28/20 09:12 Dose: 125 mls/hr Documented by: Lactated Ringer's (Ringers, Lactated) Confirm Administered Dose 1,000 mls @ as directed .ROUTE .STK-MED ONE Stop: 11/28/20 06:45 Last Admin: 11/28/20 06:00 Dose: 999 mls/hr Documented by: Lactated Ringer's (Ringers, Lactated) Confirm Administered Dose 1,000 mls @ as directed .ROUTE .STK-MED ONE Stop: 11/28/20 07:51 Dextrose/Lactated Ringer's (Dextrose 5%-Lactated Ringers) 1,000 mls @ 125 mls/hr IV ASDIRECTED MARY Stop: 11/28/20 17:56 Last Admin: 11/28/20 16:52 Dose: 125 mls/hr Documented by: Ketorolac Tromethamine (Toradol) 30 mg IVPUSH Q6H MARY Stop: 11/29/20 03:01 Last Admin: 11/29/20 03:36 Dose: 30 mg Documented by: Metoclopramide HCl (Reglan) 10 mg IVPUSH ONETIME ONE Stop: 11/28/20 06:46 Last Admin: 11/28/20 06:57 Dose: 10 mg Documented by: Metoclopramide HCl (Reglan) Confirm Administered Dose 10 mg .ROUTE .STK-MED ONE Stop: 11/28/20 06:44 Last Admin: 11/28/20 16:53 Dose: Not Given Documented by: Morphine Sulfate (Duramorph Pf) Confirm Administered Dose 10 mg .ROUTE .STK-MED ONE Stop: 11/28/20 07:05 Oxytocin (Pitocin) Confirm Administered Dose 20 unit .ROUTE .STK-MED ONE Stop: 11/28/20 07:05 Sodium Chloride (Saline Flush) 10 ml FLUSH ASDIRECTED PRN PRN Reason: Keep Vein Open
[2020-11-30] MEDS: Ibuprofen 600 MG Tab PO PRN (07:01)
[2020-11-30] MEDS: Docusate Sodium 100 MG Cap PO PRN (09:01)
== END 2020-11-30 09:41 | disposition home or self-care (01) | DRG 540 ==
LOC: JD.OB 05:35
PROVIDERS: ADMIT Obstetrics & Gynecology; ATTEND Obstetrics & Gynecology
PROC: 10D00Z1 Extraction of Products of Conception, Low, Open Approach (ICD-10-PCS; principal; 2020-11-28)
DX: O34.211 Maternal care for low transverse scar from previous cesarean delivery (principal); Z37.0 Single live birth; O99.214 Obesity complicating childbirth; E66.9 Obesity, unspecified; O99.62 Diseases of the digestive system complicating childbirth; K21.9 Gastro-esophageal reflux disease without esophagitis; Z20.822 Contact with and (suspected) exposure to COVID-19; Z3A.37 37 weeks gestation of pregnancy
CPT/HCPCS: 01961; 36415; 59025; 85025; 85027; 86592; 86850; 86900; 86901; 94762; A9270-GY; J0690; J1885; J2270; J2590; J2765; J3010; J7120; J7121; U0002

== ENCOUNTER 2022-04-12 08:21 | Emergency (ER) | payer BC ==
[2022-04-12] MEDS ORDERED: Lactated Ringers 1,000 ML IV ONE (09:53)
[2022-04-12] MEDS ORDERED: Ondansetron 4 MG/2 ML SDV IVPUSH ONE (09:53)
[2022-04-12] MEDS ORDERED: Morphine 4 MG/ML Syringe IVPUSH ONE (09:53)
[2022-04-12] MEDS ORDERED: Iopamidol 612 MG/ML 100 ML Bottle IVPUSH ONE (12:12)
[2022-04-12] MEDS ORDERED: Sodium Chloride 0.9% 10 ML Syringe FLUSH PRN (12:12)
== END 2022-04-12 14:39 | disposition home or self-care (01) ==
LOC: JD.ED 08:21
DX: K76.89 Other specified diseases of liver (principal); I10 Essential (primary) hypertension; E66.9 Obesity, unspecified; Z68.31 Body mass index [BMI] 31.0-31.9, adult
CPT/HCPCS: 36415; 74177; 76705; 80053; 81001; 81025; 83605; 83690; 85025; 85610; 96361; 96374; 96375; 99284; J2270; J2405; J3490; J7120; Q9967

== ENCOUNTER 2022-05-13 04:54 | Emergency (ER) | payer BC ==
[2022-05-13] MEDS ORDERED: Ondansetron 4 MG/2 ML SDV IVPUSH ONE (05:15)
[2022-05-13] MEDS ORDERED: Sodium Chloride 0.9% 1,000 ML IV ONE ×2 (05:15→06:10)
[2022-05-13] MEDS ORDERED: HYDROmorphone 1 MG/ML Syringe IVPUSH ONE (05:41)
[2022-05-13] MEDS ORDERED: Magnesium Sulfate/Water 2 GM in Premix Bag 1 BAG IV ONE (06:44)
[2022-05-13] MEDS ORDERED: Prochlorperazine 10 MG/2 ML SDV IVPUSH ONE (06:50)
[2022-05-13] MEDS ORDERED: Alum Hydrox/Mag Hydrox/Simeth 30 ML, Lidocaine 2% 15 ML PO ONE ×2 (06:50)
[2022-05-13] MEDS ORDERED: Dexamethasone 10 MG/ML SDV IVPUSH ONE (07:13)
== END 2022-05-13 08:50 | disposition home or self-care (01) ==
LOC: JD.ED 04:54
DX: R11.2 Nausea with vomiting, unspecified (principal); T45.1X5A Adverse effect of antineoplastic and immunosuppressive drugs, initial encounter; I10 Essential (primary) hypertension; E66.9 Obesity, unspecified; Z68.30 Body mass index [BMI] 30.0-30.9, adult
CPT/HCPCS: 36415; 80053; 83690; 83735; 85025; 96361; 96365; 96366; 96372; 96375; 99284; A9270; J0780; J1100; J1170; J1447; J2405; J3475; J7030

== ENCOUNTER 2024-01-03 15:40 | Emergency (ER) | payer BC ==
[2024-01-03 16:26] LABS: BASOPHILS PERCENT AUTO 0.5 % (0.0-1.0); EOSINOPHILS ABSOLUTE AUTO 0.2 K/mm3 (0.0-0.4); HEMATOCRIT 29.7 % (37.0-47.0); HEMOGLOBIN 10.2 gm/dl (12.0-16.0); IMMATURE GRAN ABSOLUTE AUTO 0.03 K/mm3 (0.00-0.05); IMMATURE GRAN PERCENT AUTO 0.7 % (0.0-0.4); LYMPHOCYTES PERCENT AUTO 22.4 % (24.0-44.0); MEAN CORPUSCULAR HEMOGLOBIN 29.9 pg (28.0-32.0); MEAN CORPUSCULAR HGB CONC 34.3 g/dl (32.0-36.0); MEAN CORPUSCULAR VOLUME 87.1 fl (83.0-99.0); MEAN PLATELET VOLUME 9.2 fl (9.4-12.3); MONOCYTES ABSOLUTE AUTO 0.3 K/mm3 (0.0-0.8); MONOCYTES PERCENT AUTO 5.9 % (0.0-8.0); NEUTROPHILS ABSOLUTE AUTO 2.8 K/mm3 (1.8-7.7); NEUTROPHILS PERCENT AUTO 66.5 % (41.0-71.0); PLATELET COUNT,PLT 103 K/mm3 (150-400); RED BLOOD CELL COUNT 3.41 M/mm3 (4.10-5.30); WHITE BLOOD CELL COUNT,WBC 4.25 K/mm3 (3.9-11.3)
[2024-01-03] MEDS: Metoclopramide 10 MG/2 ML SDV IVPUSH ONE (16:31)
[2024-01-03] MEDS: Dextrose 5%-0.9% NaCl 1,000 ML IV SCH (16:32)
[2024-01-03] MEDS: Pantoprazole 40 MG Vial IVPUSH ONE (16:32)
[2024-01-03] MEDS: Pantoprazole 80 MG in Sodium Chloride 0.9% 100 ML IV SCH (16:33)
[2024-01-03 16:44] LABS: INR 1.12; PROTHROMBIN TIME 11.9 SECONDS (9.7-12.0)
[2024-01-03 16:45] LABS: PTT,PARTIAL THROMBOPLSTIN TIME 94.1 SECONDS (21.7-31.4)
[2024-01-03 17:01] LABS: A/G RATIO 0.9 (1-2); ANION GAP 12.6 (5-15); BILIRUBIN TOTAL 0.5 mg/dL (0.2-1.0); C-REACTIVE PROTEIN 0.37 mg/dL (<0.30); CREATININE 0.6 mg/dL (0.55-1.02); EST CRCL DRUG DOSING (CG) 108.26 mL/min; MAGNESIUM 1.6 mg/dL (1.8-2.4); POTASSIUM,K 3.6 mEq/L (3.5-5.1); PROTEIN TOTAL,TP 6.2 g/dl (6.4-8.2)
== END 2024-01-03 18:01 ==
LOC: JD.ED 15:40
DX: K29.01 Acute gastritis with bleeding (principal); C50.911 Malignant neoplasm of unspecified site of right female breast; C79.9 Secondary malignant neoplasm of unspecified site; I10 Essential (primary) hypertension; K21.9 Gastro-esophageal reflux disease without esophagitis; E66.9 Obesity, unspecified; Z79.01 Long term (current) use of anticoagulants; Z79.899 Other long term (current) drug therapy; Z68.28 Body mass index [BMI] 28.0-28.9, adult
CPT/HCPCS: 36415; 71045; 80053; 83605; 83735; 83880; 85025; 85610; 85730; 86140; 86850; 86900; 86901; 93005; 96365; 96375; 99285; C9113; J2765; J3490; J7042; 93010